=== PATIENT | female | born 1970 | race Two or more races ===

== ENCOUNTER 2024-09-12 08:16 | Outpatient (CLI) | payer BC | END 2024-09-12 08:17 | disposition home or self-care (01) | LOC: CSHSLEEP 08:16 | PROVIDERS: ATTEND Nurse Practitioner Family | DX: G47.33 Obstructive sleep apnea (adult) (pediatric) (principal); R20.0 Anesthesia of skin; R53.83 Other fatigue | CPT/HCPCS: 95800 ==